=== PATIENT | female | born 1985 | race Caucasian/White ===

== ENCOUNTER 2016-10-19 12:00 | Observation (INO) | payer BC ==
[~2016-10-19] VITALS: Ht 152.4 cm; Wt 59.9 kg
[2016-10-19 13:17] LABS: BILIRUBIN,URINE NEGATIVE (NEGATIVE); BLOOD, URINE NEGATIVE (NEGATIVE); CLARITY/URINE SL HAZY (CLEAR); COLOR,URINE YELLOW (YELLOW); GLUCOSE,URINE NEGATIVE (NEGATIVE); KETONES,URINE NEGATIVE (NEGATIVE); LEUKOCYTE ESTERASE ,URINE NEGATIVE (NEGATIVE); NITRITE, URINE NEGATIVE (NEGATIVE); PH,URINE 6.5 (5.0-8.0); PROTEIN URINE NEGATIVE (NEGATIVE); UROBILINOGEN,URINE 0.2 (0.2-1.0)
[2016-10-19 13:22] LABS: HEMATOCRIT 29.1 % (36-48); HEMOGLOBIN 9.2 g/dL (12.0-16.0); MEAN CORPUSCULAR HEMOGLOBIN 24 pg (27-31); MEAN CORPUSCULAR HGB CONC 32 % (32-36); MEAN CORPUSCULAR VOLUME 75 fL (79.0-98.0); PLATELET COUNT (AUTO) 192 K/uL (130-430); RED CELL DISTRIBUTION WIDTH 17.4 % (9.0-15.0); WHITE BLOOD COUNT (AUTO) 7.2 K/uL (4.8-10.8)
[2016-10-19 13:27] LABS: ALBUMIN 2.5 g/dL (3.4-4.8); CALCIUM 8.2 mg/dL (8.4-11.0); CREATININE 0.49 mg/dL (0.55-1.30); POTASSIUM 3.7 mmol/L (3.5-5.1); TOTAL BILIRUBIN 0.3 mg/dL (0.0-1.0); TOTAL PROTEIN, SERUM 6.9 g/dL (6.4-8.3); URIC ACID 6.3 mg/dL (2.4-7.0)
[2016-10-19 13:32] LABS: INR 0.9 (0.8-1.2); PROTHROMBIN TIME 9.7 SECS (9.5-12.5)
[2016-10-19 14:15] VITALS: BP_SYST 122
[2016-10-19 14:17] LABS: ATYPICAL LYMPHOCYTES % 3 % (0-0); BAND % (MANUAL) 12 % (0-6); LYMPHOCYTES % (MANUAL) 8 % (20-46)
[2016-10-19 14:18] LABS: BASOPHILS % (MANUAL) 0 % (0-2); EOSINOPHILS % (MANUAL) 1 % (0-7); MONOCYTES % (MANUAL) 4 % (0-11)
== END 2016-10-19 16:45 | disposition home or self-care (01) ==
LOC: SPU 12:00
PROVIDERS: ADMIT Specialist; ATTEND Specialist
DX: O26.893 Other specified pregnancy related conditions, third trimester (principal); R03.0 Elevated blood-pressure reading, without diagnosis of hypertension; R51 Headache; Z3A.34 34 weeks gestation of pregnancy
CPT/HCPCS: 36415; 80053; 81003; 84550; 85007; 85027; 85379; 85384; 85610; 85730; G0378

== ENCOUNTER 2016-10-27 07:56 | Inpatient (IN) | payer BC ==
[~2016-10-27] VITALS: Ht 152.4 cm; Wt 61.2 kg
[2016-10-27] MEDS ORDERED: LR 1,000 ML IV ONE (08:43)
[2016-10-27] MEDS ORDERED: OXYTOCIN/NORMAL SALINE 1,000 ML IV SCH (08:43)
[2016-10-27] MEDS ORDERED: LR 1,000 ML IV SCH ×3 (08:43→19:30)
[2016-10-27] MEDS ORDERED: AMPICILLIN SODIUM 2 GM in NS 100 ML IV ONE (08:45)
[2016-10-27] MEDS ORDERED: NALBUPHINE HCL 10 MG/ML AMP IVP PRN (08:45)
[2016-10-27] MEDS ORDERED: TERBUTALINE SULFATE 1 MG/ML VIAL SUBCUT ONE (08:45)
[2016-10-27 08:48] VITALS: BP_SYST 132
[2016-10-27] MEDS ORDERED: fentaNYL CITRATE/PF 100 MCG/2 ML AMP ONE (09:40)
[2016-10-27] MEDS ORDERED: FENT2mCg/mL-ROPIVA0.2%/NS EPID 150 ML EP ONE (09:40)
[2016-10-27 09:45] LABS: BASOPHILS % (AUTO) 0.4 % (0.0-2.0); EOSINOPHILS # (AUTO) 0.1 K/uL (0.0-0.4); EOSINOPHILS % (AUTO) 1.5 % (0.0-4.0); HEMATOCRIT 25.8 % (36-48); LYMPHOCYTES # (AUTO) 1.5 K/uL (1.0-5.5); LYMPHOCYTES % (AUTO) 18.8 % (20.5-51.5); MEAN CORPUSCULAR HEMOGLOBIN 23 pg (27-31); MEAN CORPUSCULAR HGB CONC 31 % (32-36); MEAN CORPUSCULAR VOLUME 74 fL (79.0-98.0); MONOCYTES # (AUTO) 0.5 K/uL (0.0-1.0); MONOCYTES % (AUTO) 6.2 % (1.7-9.3); NEUTROPHILS # (AUTO) 5.6 K/uL (1.8-7.7); NEUTROPHILS % (AUTO) 73.1 % (40.0-70.0); PLATELET COUNT (AUTO) 228 K/uL (130-430); RED BLOOD CELL COUNT(AUTO) 3.52 MIL/uL (4.2-6.2); RED CELL DISTRIBUTION WIDTH 17.5 % (9.0-15.0)
[2016-10-27 09:46] LABS: WHITE BLOOD COUNT (AUTO) 7.7 K/uL (4.8-10.8)
[2016-10-27] MEDS ORDERED: LR 500 ML IV ONE (10:32)
[2016-10-27] MEDS ORDERED: FENT2mCg/mL-ROPIVA0.2%/NS EPID 150 ML EP SCH (10:45)
[2016-10-27] MEDS ORDERED: fentaNYL CITRATE/PF 100 MCG/2 ML AMP EP ONE (10:45)
[2016-10-27] MEDS ORDERED: ePHEDrine sulfate 50 MG/ML VIAL IVP PRN (10:45)
[2016-10-27] MEDS ORDERED: DIPHENHYDRAMINE INJ 50 MG/ML VIAL IVP PRN (12:30)
[2016-10-27] MEDS ORDERED: AMPICILLIN SODIUM 1 GM in NS 50 ML IV SCH (12:45)
[2016-10-27] MEDS ORDERED: CEFAZOLIN 2 GM IVPB PREMIX 50 ML IV ONE (18:15)
[2016-10-27] MEDS ORDERED: ROPIVACAINE 40 MG/20 ML AMP EP ONE (19:00)
[2016-10-27 19:09] VITALS: BP_SYST 127
[2016-10-27] MEDS ORDERED: MIDAZOLAM HCL 2 MG/2 ML VIAL (VERSED) ONE ×2 (19:27→19:38)
[2016-10-27] MEDS ORDERED: DIPHENHYDRAMINE INJ 50 MG/ML VIAL IM PRN (19:30)
[2016-10-27] MEDS ORDERED: DOCUSATE SODIUM 100 MG CAPSULE PO PRN (19:30)
[2016-10-27] MEDS ORDERED: ONDANSETRON HCL 4 MG/2 ML VIAL IVP PRN (19:30)
[2016-10-27] MEDS ORDERED: NALOXONE HCL 0.4 MG/ML AMP (NARCAN) IVP PRN (19:30)
[2016-10-27] MEDS ORDERED: HYDROmorphone 2 MG TAB PO PRN (19:30)
[2016-10-27] MEDS ORDERED: chlorproMAZINE HCL 50 MG/ 2 ML AMP IM PRN ×2 (19:30→22:30)
[2016-10-27] MEDS ORDERED: OXYTOCIN/NORMAL SALINE 1,000 ML IV ONE ×2 (19:30→19:41)
[2016-10-27] MEDS ORDERED: LANOLIN 7 GM OINT. TP PRN (19:30)
[2016-10-27] MEDS ORDERED: RHO(D) IMMUNE GLOBULIN/MALTOSE 1500 UNITS/1.3 ML (WINHRO) IM PRN (19:30)
[2016-10-27] MEDS ORDERED: MORPHINE SULFATE 10MG/10ML PF AMP EP SCH (19:30)
[2016-10-27] MEDS ORDERED: SENNOSIDES/DOCUSATE SODIUM 1 TAB TABLET(SENOKOT-S) PO PRN (19:30)
[2016-10-27] MEDS ORDERED: KETOROLAC TROMETHAMINE 60 MG/2 ML VIAL IM PRN (19:30)
[2016-10-27] MEDS ORDERED: ANUSOL 1 EA SUPP.RECT (PREPARATION H) RC PRN (19:30)
[2016-10-27] MEDS ORDERED: MEASLES,MUMPS&RUBELLA VACC/PF 12500 UNIT/0.5 ML VIAL SUBQ PRN (19:30)
[2016-10-27] MEDS ORDERED: BISACODYL 10 MG/SUPPOSITORY RC PRN (19:30)
[2016-10-27] MEDS ORDERED: METOCLOPRAMIDE HCL 10 MG/2 ML VIAL IVP PRN (19:30)
[2016-10-27] MEDS ORDERED: MIDAZOLAM HCL 5 MG/5 ML VIAL IVP PRN (19:30)
[2016-10-27] MEDS ORDERED: SIMETHICONE 80 MG TAB.CHEW PO PRN (19:30)
[2016-10-27] MEDS ORDERED: chlorproMAZINE HCL 50 MG/ 2 ML AMP ONE (19:53)
[2016-10-27] MEDS ORDERED: TEMAZEPAM 15 MG CAPSULE PO PRN (21:00)
[2016-10-28] MEDS: CEFAZOLIN 1 GM IVPB PREMIX 50 ML IV SCH ×3 (00:19→12:17)
[2016-10-28] MEDS ORDERED: KETOROLAC TROMETHAMINE 30 MG VIAL IVP SCH (06:00)
[2016-10-28 07:50] LABS: BASOPHILS % (AUTO) 0.4 % (0.0-2.0); EOSINOPHILS % (AUTO) 0.2 % (0.0-4.0); LYMPHOCYTES # (AUTO) 0.9 K/uL (1.0-5.5); MEAN CORPUSCULAR HEMOGLOBIN 23 pg (27-31); MEAN CORPUSCULAR HGB CONC 32 % (32-36); MEAN CORPUSCULAR VOLUME 73 fL (79.0-98.0); MONOCYTES # (AUTO) 0.6 K/uL (0.0-1.0); MONOCYTES % (AUTO) 5.4 % (1.7-9.3); PLATELET COUNT (AUTO) 208 K/uL (130-430); RED BLOOD CELL COUNT(AUTO) 3.02 MIL/uL (4.2-6.2); RED CELL DISTRIBUTION WIDTH 17.2 % (9.0-15.0); WHITE BLOOD COUNT (AUTO) 11.5 K/uL (4.8-10.8)
[2016-10-28] MEDS ORDERED: COMMUNICATION ORDER XX ONE (08:15)
[2016-10-28 08:24] LABS: HEMATOCRIT 22.1 % (36-48); HEMOGLOBIN 7.1 g/dL (12.0-16.0)
[2016-10-28] MEDS: KETOROLAC TROMETHAMINE 30 MG VIAL IVP SCH ×3 (08:33→21:30)
[2016-10-28] MEDS ORDERED: IBUPROFEN 600 MG TABLET PO SCH (18:00)
[2016-10-29] MEDS: KETOROLAC TROMETHAMINE 30 MG VIAL IVP SCH (02:30)
[2016-10-29] MEDS: IBUPROFEN 600 MG TABLET PO SCH ×2 (06:07→12:35)
== END 2016-10-29 15:45 | disposition home or self-care (01) | DRG 765 ==
LOC: SPU 08:00
PROVIDERS: ADMIT Specialist; ATTEND Specialist
PROC: 10D00Z1 Extraction of Products of Conception, Low, Open Approach (ICD-10-PCS; principal; 2016-10-28)
PROC: 3E0134Z Introduction of Serum, Toxoid and Vaccine into Subcutaneous Tissue, Percutaneous Approach (ICD-10-PCS; 2016-10-28)
DX: O30.003 Twin pregnancy, unspecified number of placenta and unspecified number of amniotic sacs, third trimester (principal); O60.14X0 Preterm labor third trimester with preterm delivery third trimester, not applicable or unspecified; O32.1XX0 Maternal care for breech presentation, not applicable or unspecified; Z3A.36 36 weeks gestation of pregnancy; Z37.2 Twins, both liveborn; Z23 Encounter for immunization
CPT/HCPCS: 36415; 85025; 86592; 86886; 86900; 86901; 94760; J0290; J0690; J1200; J1885; J2590; J2795; J3010; J3230; J3465; J7120

== ENCOUNTER 2019-02-14 06:30 | Inpatient (IN) | payer BC ==
[~2019-02-14] VITALS: Ht 152.4 cm; Wt 59.4 kg
[2019-02-14] MEDS ORDERED: LR 1,000 ML IV SCH ×3 (06:39→12:30)
[2019-02-14 06:45] VITALS: BP_SYST 146
[2019-02-14] MEDS ORDERED: CEFAZOLIN 2 GM IVPB PREMIX 50 ML IV ONE (06:45)
[2019-02-14 07:27] LABS: BASOPHILS # (AUTO) 0.1 K/uL (0.0-0.2); BASOPHILS % (AUTO) 0.9 % (0.0-2.0); EOSINOPHILS # (AUTO) 0.2 K/uL (0.0-0.4); EOSINOPHILS % (AUTO) 2.2 % (0.0-4.0); HEMATOCRIT 29.1 % (36-48); HEMOGLOBIN 9.3 g/dL (12.0-16.0); LYMPHOCYTES # (AUTO) 1.5 K/uL (1.0-5.5); LYMPHOCYTES % (AUTO) 16.6 % (20.5-51.5); MEAN CORPUSCULAR HEMOGLOBIN 23 pg (27-31); MEAN CORPUSCULAR HGB CONC 32 % (32-36); MEAN CORPUSCULAR VOLUME 71 fL (79.0-98.0); MONOCYTES # (AUTO) 0.5 K/uL (0.0-1.0); NEUTROPHILS % (AUTO) 75.3 % (40.0-70.0); PLATELET COUNT (AUTO) 241 K/uL (130-430); RED BLOOD CELL COUNT(AUTO) 4.09 MIL/uL (4.2-6.2); RED CELL DISTRIBUTION WIDTH 19.2 % (9.0-15.0); WHITE BLOOD COUNT (AUTO) 9.3 K/uL (4.8-10.8)
[2019-02-14] MEDS ORDERED: ONDANSETRON HCL 4 MG/2 ML VIAL IVP ONE (07:40)
[2019-02-14] MEDS ORDERED: MIDAZOLAM HCL 5 MG/5 ML VIAL IVP ONE (07:40)
[2019-02-14] MEDS ORDERED: NS IRRIG SOLN 1000 ML IR ONE (07:40)
[2019-02-14] MEDS ORDERED: LR 1,000 ML IV.SOLN IV ONE (07:40)
[2019-02-14] MEDS ORDERED: BUPIVACAINE /DEX PF 0.75% SPINAL 2 ML AMP INJ ONE (07:40)
[2019-02-14] MEDS ORDERED: MORPHINE SULFATE 10MG/10ML PF AMP EP ONE (07:40)
[2019-02-14] MEDS ORDERED: OXYTOCIN 10 UNIT/ML VIAL IV ONE (07:40)
[2019-02-14 07:48] LABS: BILIRUBIN,URINE NEGATIVE (NEGATIVE); BLOOD, URINE TRACE (NEGATIVE); CLARITY/URINE CLEAR (CLEAR); COLOR,URINE YELLOW (YELLOW); GLUCOSE,URINE NEGATIVE (NEGATIVE); KETONES,URINE NEGATIVE (NEGATIVE); LEUKOCYTE ESTERASE ,URINE NEGATIVE (NEGATIVE); NITRITE, URINE NEGATIVE (NEGATIVE); PROTEIN URINE NEGATIVE (NEGATIVE); UROBILINOGEN,URINE 0.2 (0.2-1.0)
[2019-02-14 07:58] LABS: BACTERIA,URINE FEW /HPF (None Seen); RBC,URINE 0-3 /HPF (0-3); WBC,URINE 0-3 /HPF (0-3)
[2019-02-14] MEDS ORDERED: MORPHINE SULFATE 10MG/10ML PF AMP SP SCH (08:30)
[2019-02-14] MEDS ORDERED: KETOROLAC TROMETHAMINE 60 MG/2 ML VIAL IM PRN (08:30)
[2019-02-14] MEDS ORDERED: ONDANSETRON HCL 4 MG/2 ML VIAL IVP PRN (08:30)
[2019-02-14] MEDS ORDERED: METOCLOPRAMIDE HCL 10 MG/2 ML VIAL IVP PRN (08:30)
[2019-02-14] MEDS ORDERED: NALOXONE HCL 0.4 MG/ML AMP (NARCAN) IVP PRN (08:30)
[2019-02-14] MEDS ORDERED: DIPHENHYDRAMINE INJ 50 MG/ML VIAL IM PRN (08:30)
[2019-02-14 08:52] VITALS: BP_SYST 112
[2019-02-14] MEDS ORDERED: RHO(D) IMMUNE GLOBULIN/MALTOSE 1500 UNITS/1.3 ML (WINHRO) IM PRN (09:00)
[2019-02-14] MEDS ORDERED: ANUSOL 1 EA SUPP.RECT (PREPARATION H) RC PRN (09:00)
[2019-02-14] MEDS ORDERED: LANOLIN 7 GM OINT. TP PRN (09:00)
[2019-02-14] MEDS ORDERED: DOCUSATE SODIUM 100 MG CAPSULE PO PRN (09:00)
[2019-02-14] MEDS ORDERED: DIPH-TET-PERTUS Vaccine 0.5 ML VIAL (ADACEL) I.M. PRN (09:00)
[2019-02-14] MEDS ORDERED: MEASLES,MUMPS&RUBELLA VACC/PF 12500 UNIT/0.5 ML VIAL SUBQ PRN (09:00)
[2019-02-14] MEDS ORDERED: BISACODYL 10 MG/SUPPOSITORY RC PRN (09:00)
[2019-02-14] MEDS ORDERED: SENNOSIDES/DOCUSATE SODIUM 1 TAB TABLET(SENOKOT-S) PO PRN (09:00)
[2019-02-14] MEDS: CEFAZOLIN 1 GM IVPB PREMIX 50 ML IV SCH ×2 (11:56→18:48)
[2019-02-14] MEDS ORDERED: oxyCODONE HCL 5 MG TABLET PO PRN ×2 (12:30)
[2019-02-14] MEDS ORDERED: OXYTOCIN/0.9 % SODIUM CHLORIDE 1,000 ML IV SCH (12:30)
[2019-02-14] MEDS ORDERED: OXYTOCIN/0.9 % SODIUM CHLORIDE 1,000 ML IV ONE (14:58)
[2019-02-14] MEDS: KETOROLAC TROMETHAMINE 30 MG VIAL IVP SCH (18:48)
[2019-02-14] MEDS ORDERED: TEMAZEPAM 15 MG CAPSULE PO PRN (21:00)
[2019-02-15] MEDS: KETOROLAC TROMETHAMINE 30 MG VIAL IVP SCH ×3 (00:25→12:17)
[2019-02-15] MEDS: CEFAZOLIN 1 GM IVPB PREMIX 50 ML IV SCH (00:26)
[2019-02-15 08:19] LABS: BASOPHILS # (AUTO) 0.1 K/uL (0.0-0.2); BASOPHILS % (AUTO) 0.8 % (0.0-2.0); EOSINOPHILS # (AUTO) 0.1 K/uL (0.0-0.4); EOSINOPHILS % (AUTO) 0.8 % (0.0-4.0); HEMATOCRIT 24.4 % (36-48); HEMOGLOBIN 7.7 g/dL (12.0-16.0); LYMPHOCYTES # (AUTO) 1.5 K/uL (1.0-5.5); LYMPHOCYTES % (AUTO) 16.1 % (20.5-51.5); MEAN CORPUSCULAR HEMOGLOBIN 23 pg (27-31); MEAN CORPUSCULAR HGB CONC 32 % (32-36); MEAN CORPUSCULAR VOLUME 72 fL (79.0-98.0); MONOCYTES # (AUTO) 0.5 K/uL (0.0-1.0); MONOCYTES % (AUTO) 5.1 % (1.7-9.3); NEUTROPHILS # (AUTO) 7.2 K/uL (1.8-7.7); NEUTROPHILS % (AUTO) 77.2 % (40.0-70.0); PLATELET COUNT (AUTO) 194 K/uL (130-430); RED BLOOD CELL COUNT(AUTO) 3.38 MIL/uL (4.2-6.2); RED CELL DISTRIBUTION WIDTH 19.5 % (9.0-15.0); WHITE BLOOD COUNT (AUTO) 9.4 K/uL (4.8-10.8)
[2019-02-15] MEDS: SIMETHICONE 80 MG TAB.CHEW PO PRN ×2 (14:48→17:48)
[2019-02-15] MEDS: IBUPROFEN 600 MG TABLET PO SCH (17:48)
[2019-02-16] MEDS: SIMETHICONE 80 MG TAB.CHEW PO PRN ×2 (00:02→12:23)
[2019-02-16] MEDS: IBUPROFEN 600 MG TABLET PO SCH ×3 (00:03→12:24)
== END 2019-02-16 17:15 | disposition home or self-care (01) | DRG 788 ==
LOC: SPU 06:30
PROVIDERS: ADMIT Specialist; ATTEND Specialist
PROC: 10D00Z1 Extraction of Products of Conception, Low, Open Approach (ICD-10-PCS; principal; 2019-02-14 07:30)
DX: O34.211 Maternal care for low transverse scar from previous cesarean delivery (principal); O69.81X0 Labor and delivery complicated by cord around neck, without compression, not applicable or unspecified; O36.63X0 Maternal care for excessive fetal growth, third trimester, not applicable or unspecified; O99.824 Streptococcus B carrier state complicating childbirth; Z37.0 Single live birth; Z3A.39 39 weeks gestation of pregnancy
CPT/HCPCS: 36415; 81000-TC; 85025; 86592; 86886; 86900; 86901; 94760; J0690; J1885; J2250; J2274; J2405; J2590; J3490; J7120